=== PATIENT | female | born 1965 | race Caucasian/White ===

== ENCOUNTER → 2020-06-23 | Outpatient (CLI) | payer BC ==
--- NOTE | 2020-06-24 16:36 | MAM ---
EXAM DESCRIPTION: 3D Screening BILATERAL : Digital Mammography. CLINICAL HISTORY: 54 years Female screening . No complaints. Female sibling with breast cancer age 51. Remote family history of breast cancer. Menarche age 12. No childbirth. Currently on HRT. Premenopausal. Prior benign biopsy and cyst aspiration left breast.. Lifetime risk of developing breast cancer (Tyrer-Cuzick model)(%): 16.3. COMPARISON: Baseline study at this facility. Prior reports and images from outside facility performed in 2019 are not yet available. TECHNIQUE: Bilateral CC and MLO projection full-field images, digital tomosynthesis mammographic technique. Bilateral digital 2-D full-field MLO images. CAD available for 2-D images. FINDINGS: The breast parenchymal density pattern is: Heterogeneously dense breast tissue, which may obscure small masses. Axillary nodes. Solitary microcalcifications. Multiple partially or completely circumscribed masses in the upper outer quadrant of the left breast and lower outer quadrant. Cysts versus lymph nodes versus fibroadenomas Partially circumscribed mass same density as surrounding fibroglandular tissues in the axillary tail of the right breast. Not associated with calcifications. No skin thickening or nipple retraction no abnormal microcalcifications bilaterally. IMPRESSION: BIRAD CATEGORY: 0 - INCOMPLETE- Need prior mammograms for comparison. RECOMMENDATIONS: FOLLOW-UP: Comparison with prior examination(s) when available. Written communication explaining the results and follow-up will be mailed to the patient and referring care provider. Electronically signed by: Jose Raul Gómez MD 06/24/2020 4:35 PM [facility]
== END ==
LOC: MAMMO 09:59
PROVIDERS: ATTEND Family Medicine
DX: Z12.31 Encounter for screening mammogram for malignant neoplasm of breast (principal)